=== PATIENT | male | born 1995 | race Caucasian/White ===

== ENCOUNTER 2018-07-04 02:25 | Emergency (ER) | payer OTHER ==
[2018-07-04 02:48] VITALS: BP 147/73; PULSE 72; TEMP 97.9; BMI 23.5
[2018-07-04] MEDS ORDERED: LIDOCAINE HCL 2% JELLY (5 ML/TUBE) ONE (02:50)
--- NOTE | 2018-07-04 03:07 | PDOC ---
History of Present Illness - General History Source: Patient Exam Limitations: No Limitations - History of Present Illness Initial Comments: 07/04/18 04:17 Patient is a 23 year old male with no significant past medical history who presents to the ED with complaints of rectal pain, s/p hemorrhoid that began x3 days ago. Patient reports experiencing hemorrhoid that he states has gradually increased in intensity over time. He reports pain is increased when moving his bowels, as well as when he moves his body in any direction. Patient reports being unable to sleep secondary to the pain, stating the pain woke him from his sleep tonight, prompting him to come into the ED for further evaluation. As per patient's girlfriend, she reports seeing the hemorrhoid earlier today and states its out. Denies chest pain, Sob. Denies nausea, vomiting. Denies contact with sick individuals, out of state travelling. Denies dysuria, hematuria. Denies diarrhea , constipation. Denies any other symptoms. Allergies: None. Social history: Lives with girlfriend. No smoking. No alcohol. No illicit drugs. Surgical history: None PMD: None <Yeison Ruiz - Last Filed: 07/04/18 04:17> <Ayesha Groves - Last Filed: 07/08/18 11:04> - General Chief Complaint: Hemorrhoids Stated Complaint: HEMORRHOIDS Time Seen by Provider: 07/04/18 03:06 Past History <Yeison Ruiz - Last Filed: 07/04/18 04:17> - Past Medical History COPD: No - Immunization History Immunization Up to Date: Yes - Suicide/Smoking/Psychosocial Hx Smoking Status: No Smoking History: Current every day smoker Have you smoked in the past 12 months: Yes Number of Cigarettes Smoked Daily: 5 Information on smoking cessation initiated: No Hx Alcohol Use: No Drug/Substance Use Hx: No Substance Use Type: None <Ayesha Groves - Last Filed: 07/08/18 11:04> - Past Medical History Allergies/Adverse Reactions: Allergies Allergy/AdvReac Type Severity Reaction Status Date / Time No Known Allergies Allergy Verified 07/04/18 02:46 Home Medications: Ambulatory Orders Benzocaine [Anacaine] 30 gm TP Q4H PRN #1 tube 07/04/18 Docusate Sodium [Colace -] 100 mg PO BID #14 capsule 07/04/18 Hydrocortisone Acetate [Anusol Hc Suppository -] 25 mg RC BID #14 supp.rect Sennosides [Senna] 8.6 mg PO HS #14 tablet 07/04/18 Review of Systems - Review of Systems Able to Perform ROS?: Yes Comments:: 07/04/18 04:17 GENERAL/CONSTITUTIONAL: No fever or chills. No weakness. HEAD, EYES, EARS, NOSE AND THROAT: No change in vision. No ear pain or discharge. No sore throat. GASTROINTESTINAL: +Rectal pain. No nausea, vomiting, diarrhea or constipation. GENITOURINARY: No dysuria, frequency, or change in urination. CARDIOVASCULAR: No chest pain or shortness of breath. RESPIRATORY: No cough, wheezing, or hemoptysis. MUSCULOSKELETAL: No joint or muscle swelling or pain. No neck or back pain. SKIN: No rash NEUROLOGIC: No headache, vertigo, loss of consciousness, or change in strength/ sensation. ENDOCRINE: No increased thirst. No abnormal weight change. HEMATOLOGIC/LYMPHATIC: No anemia, easy bleeding, or history of blood clots. ALLERGIC/IMMUNOLOGIC: No hives or skin allergy. <Yeison Ruiz - Last Filed: 07/04/18 04:17> *Physical Exam - Vital Signs Last Vital Signs Temp Pulse Resp BP Pulse Ox 97.9 F 72 20 147/73 99 07/04/18 02:46 07/04/18 02:46 07/04/18 02:46 07/04/18 02:46 07/04/18 02:46 <Yeison Ruiz - Last Filed: 07/04/18 04:17> - Vital Signs Last Vital Signs Temp Pulse Resp BP Pulse Ox 97.9 F 72 20 147/73 99 07/04/18 02:46 07/04/18 02:46 07/04/18 02:46 07/04/18 02:46 07/04/18 02:46 - Physical Exam Comments: GENERAL: Awake, alert, and fully oriented, in no acute distress HEAD: No signs of trauma EYES: PERRLA, EOMI, sclera anicteric, conjunctiva clear ENT: Auricles normal inspection, hearing grossly normal, nares patent, oropharynx clear without exudates. Moist mucosa SKIN: Warm, Dry, normal turgor, no rashes or lesions noted. RECTAL: +Small non-thrombosed hemorrhoid at the 3 o'clock position. <Ayesha Groves - Last Filed: 07/08/18 11:04> ED Treatment Course - Medications Given in the ED: ED Medications Discontinued Medications Generic Name Dose Route Start Last Admin Trade Name Braedenq PRN Reason Stop Dose Admin Lidocaine HCl 1 applic 07/04/18 03:09 07/04/18 03:16 Xylocaine 2% Jelly TP 07/04/18 03:10 1 applic ONCE ONE Administration <Yeison Ruiz - Last Filed: 07/04/18 04:17> Medical Decision Making - Medical Decision Making Pt improved with topical anesthetic. Will treat with anusol (he was using preparation H that did not contain a steroid), topical anesthetic, stool softeners. <Ayesha Groves - Last Filed: 07/08/18 11:04> *DC/Admit/Observation/Transfer - Attestations Scribe Attestion: 07/04/18 04:18 Documentation prepared by Yeison Ruiz, acting as medical officer psychiatry for Ayesha Groves MD. <Yeison Ruiz - Last Filed: 07/04/18 04:17> - Discharge Dispostion Decision to Admit order: No <Ayesha Groves - Last Filed: 07/08/18 11:04> Diagnosis at time of Disposition: Hemorrhoids Qualifiers: Hemorrhoid type: unspecified Qualified Code(s): K64.9 - Unspecified hemorrhoids - Discharge Dispostion Disposition: HOME Condition at time of disposition: Improved - Prescriptions Prescriptions: Benzocaine [Anacaine] 30 gm TP Q4H PRN #1 tube PRN Reason: Pain Docusate Sodium [Colace -] 100 mg PO BID #14 capsule Hydrocortisone Acetate [Anusol Hc Suppository -] 25 mg RC BID #14 supp.rect Sennosides [Senna] 8.6 mg PO HS #14 tablet - Referrals Referrals: Clovis Avery MD [Staff Physician] - - Patient Instructions Printed Discharge Instructions: DI for Hemorrhoids
[2018-07-04] MEDS ORDERED: LIDOCAINE HCL 2% JELLY (5 ML/TUBE) TP ONE (03:09)
== END 2018-07-04 03:32 | disposition home or self-care (01) ==
LOC: JER 02:25
DX: K64.9 Unspecified hemorrhoids (principal)
CPT/HCPCS: 99282-25